=== PATIENT | male | born 1970 | race Caucasian/White ===

== ENCOUNTER → 2018-05-06 | Outpatient (CLI) | payer OTHER, SELFPAY ==
--- NOTE | 2018-05-06 | DI.ECHO.S_ITS ---
[facility] +---------+ : : [address] : : : : [id number] : : : : Phone: [phone]+ Echocardiogram Report + + :Name: JENS PARK Study Date: 05/06/2018 Height: 70 in : :[facility] Exam Location: [place] Weight: 210 lb : : Gender: Male BSA: 2.1 m2 : :: 1970 Age: 47 yrs BP: 162/92 mmHg: :Reason For Study: Abnormal EKG : : Performed By: Samina Moncada : :Referring: ISAAC DE LA VEGA : + + Interpretation Summary Mild concentric left ventricular hypertrophy with ejection fraction 60-65%. Normal right ventricle and both atria. No valvular abnormality. The ascending aorta is at the upper limits of normal in size. Procedure: A two-dimensional transthoracic echocardiogram with color flow and Doppler was performed. The study quality was technically adequate. There is no prior echocardiogram noted for this patient. The patient was in normal sinus rhythm during the exam. Left Ventricle: The left ventricle is normal in size. There is mild concentric left ventricular hypertrophy. The ejection fraction is estimated to be 60-65%. There are no focal wall motion abnormalities. Assessment of diastolic parameters indicates normal left ventricular diastolic function and normal filling pressures. Right Ventricle: The right ventricle is normal in size and function. Atria: The left atrial size is normal. The right atrium is normal in size. The interatrial septum is intact with no evidence for an atrial septal defect. Mitral Valve: The mitral valve is normal in structure and function. There is trace mitral regurgitation. Aortic Valve: The aortic valve is trileaflet. The aortic valve opens well. No aortic regurgitation is present. Tricuspid Valve: The tricuspid valve is normal in structure and function. There is trace tricuspid regurgitation. The right ventricular systolic pressure is estimated at 30 mmHg assuming a right atrial pressure of 3 mm Hg. Pulmonic Valve: The pulmonic valve is not well seen, but is grossly normal. There is mild pulmonic regurgitation. Great Vessels: The aortic root is normal size. The ascending aorta is at the upper limits of normal in size. The IVC is of normal diameter and collapses greater than 50% with a sniff. This suggests a low right atrial pressure of 3 mm Hg. Pericardium/ Pleura There is an anterior echo-free space consistent with a fat pad. There is no pericardial effusion. There is no pleural effusion. MMode/2D Measurements & Calculations LVIDd: 5.2 cm LVOT diam: 2.5 cm LVIDs: 3.4 cm Ao root diam: 3.5 cm FS: 34.6 % asc Aorta Diam: 3.6 cm IVSd: 1.3 cm Ao Arch Diam (Prox Trans): 3.1 cm LVPWd: 1.3 cm LV yeboah. diameter/BSA (cm/m^2): 2.4 LV sys. diameter/BSA (cm/m^2): 1.6 LA A2 area: 21.2 cm2 RA long axis: 5.5 cm LA A4 area: 24.1 cm2 RA area: 17.3 cm2 LA length (vol): 6.2 cm RA vol: 46.4 ml LA vol: 69.9 ml RA : 21.8 ml/m2 LA vol index: 32.8 ml/m2 TAPSE: 1.8 cm Doppler Measurements & Calculations Ao V2 max: 132.3 cm/sec LVOT Max Sunny: 117.1 cm/sec Ao V2 mean: 88.5 cm/sec LV V1 max P.5 mmHg Ao max P.0 mmHg LV V1 VTI: 22.4 cm Ao mean P.6 mmHg JILL(I,D): 4.3 cm2 Ao V2 VTI: 25.0 cm JILL(V,D): 4.2 cm2 sev ratio: 0.89 JILL indexed to BSA (cm^2/m^2): 2.0 MV E max sunny: 65.6 cm/sec TR max sunny: 261.6 cm/sec MV A max sunny: 81.0 cm/sec TR max P.4 mmHg MV E/A: 0.81 Med Peak E' Sunny: 7.4 cm/sec E/E' med: 8.9 Lat Peak E' Sunny: 10.1 cm/sec E/E' lat: 6.5 E/e' average: 7.7 MV dec time: 0.13 sec Electronically signed by: Luis Henao on Reading Physician:05/06/2018 01:38 PM
== END ==
LOC: ECHO 08:46
PROVIDERS: Visit Provider Physician Assistant
DX: I37.1 Nonrheumatic pulmonary valve insufficiency (principal); R94.31 Abnormal electrocardiogram [ECG] [EKG]; I51.7 Cardiomegaly
CPT/HCPCS: 93306